=== PATIENT | male | born 1935 | race Two or more races ===

== ENCOUNTER 2017-09-15 09:36 | Outpatient (CLI) | payer OTHER | END 2017-09-15 09:42 | disposition home or self-care (01) | LOC: RAD 09:36 | DX: R07.89 Other chest pain (principal) ==

== ENCOUNTER 2020-04-11 12:55 | Outpatient (CLI) | payer OTHER | END 2020-04-11 13:02 | disposition home or self-care (01) | LOC: MRI 12:55 | PROVIDERS: ATTEND Psychiatry & Neurology Clinical Neurophysiology | DX: I63.81 Other cerebral infarction due to occlusion or stenosis of small artery (principal); I67.89 Other cerebrovascular disease | CPT/HCPCS: 70551 ==

== ENCOUNTER → 2020-08-14 15:00 | Outpatient (CLI) | payer OTHER | END | disposition home or self-care (01) | LOC: PPH VACUNA 15:00 | PROVIDERS: ATTEND Emergency Medicine Pediatric Emergency Medicine | DX: Z23 Encounter for immunization (principal) ==

== ENCOUNTER 2023-04-06 12:02 | Outpatient (CLI) | payer OTHER | END 2023-04-06 12:10 | disposition home or self-care (01) | LOC: RAD 12:02 | PROVIDERS: ATTEND Obstetrics & Gynecology Maternal & Fetal Medicine | DX: J18.9 Pneumonia, unspecified organism (principal) ==